=== PATIENT | female | born 1935 | race Caucasian/White ===

== ENCOUNTER 2020-11-25 10:09 | Emergency (ER) | payer OTHER ==
[~2020-11-25] VITALS: Ht 154.9 cm; Wt 60.6 kg
[2020-11-25] MEDS ORDERED: IV NORMAL SALINE 1,000ML 1,000 ML IV ONE (10:30)
[2020-11-25] MEDS ORDERED: MAGNESIUM CITRATE 296 ML SOLUTION. PO ONE (10:30)
--- NOTE | 2020-11-25 10:34 | PHYS DOC ---
General Adult EDM: Chief Complaint: CONSTIPATION HPI: HPI: 85-year-old female presents with constipation. The patient has not had a bowel movement in several days. She has tried MiraLAX, Dulcolax with no relief. She did have 1 very small hard bowel movement today. She has had lots of flatulence. Her abdomen is distended. She thinks is related to a muscle pull in her low back. She had this once in the past because of a pulled back muscle. It resolved at that time. She is having back pain again and now has constipation. She denies perineal numbness. Her abdomen is not painful. She denies fever or chills. Review of Systems: Review of Systems: Constitutional: Denies fever or chills Eyes: Denies change in visual acuity HENT: Denies nasal congestion or sore throat Respiratory: Denies cough or shortness of breath Cardiovascular: Denies chest pain or edema GI: Abdominal distention. Constipation. Denies abdominal pain, nausea, vomiting, bloody stools or diarrhea : Denies dysuria Musculoskeletal: Denies back pain or joint pain Integument: Denies rash Neurologic: Denies headache, focal weakness or sensory changes Endocrine: Denies polyuria or polydipsia Lymphatic: Denies swollen glands Psychiatric: Denies depression or anxiety Current Medications: Current Meds: Current Medications Medications (Trade) Dose Ordered Sig/Micha Start Time Stop Time Status Last Admin Dose Admin Magnesium Citrate (Citroma) 296 ml 1X ONCE 11/25/20 10:30 11/25/20 10:31 UNV Sodium Chloride 1,000 ml @ 1,000 mls/hr 1X ONCE 11/25/20 10:30 11/25/20 11:29 UNV Allergies: Allergies: Allergies Coded Allergies Type Severity Reaction Last Updated Verified No Known Drug Allergies 11/25/20 No Physical Exam: PE: Constitutional: Well developed, well nourished, no acute distress, non-toxic appearance. [] HENT: Normocephalic, atraumatic, bilateral external ears normal, oropharynx moist, no oral exudates, nose normal. [] Eyes: PERRLA, EOMI, conjunctiva normal, no discharge. [] Neck: Normal range of motion, no tenderness, supple, no stridor. [] Cardiovascular:Heart rate regular rhythm, no murmur [] Lungs & Thorax: Bilateral breath sounds clear to auscultation [] Abdomen: Bowel sounds normal, distended, soft, no tenderness, no masses, no pulsatile masses. [] Skin: Warm, dry, no erythema, no rash. [] Back: No tenderness, no CVA tenderness. [] Extremities: No tenderness, no cyanosis, no clubbing, ROM intact, no edema. [] Neurologic: Alert and oriented X 3, normal motor function, normal sensory function, no focal deficits noted. [] Psychologic: Affect normal, judgement normal, mood normal. [] EKG: EKG: [] Radiology/Procedures: Radiology/Procedures: [] Impressions: EXAM: Abdomen, single view. HISTORY: Constipation. COMPARISON: None. FINDINGS: Frontal views of the abdomen are obtained. There is a small to moderate amount of colonic stool. There is no evidence of bowel obstruction. There is lumbar scoliosis and degenerative change throughout the lumbar spine. IMPRESSION: Small moderate amount of colonic stool. No evidence of bowel obstruction. Electronically signed by: Kaylene Murillo MD (11/25/2020 10:49 AM) [id number] DICTATED AND SIGNED BY: KAYLENE MURILLO MD DATE: 11/25/20 1048 CC: ANGELO RODRÍGUEZ DO ~MTH0 0 Heart Score: C/O Chest Pain: N/A Risk Factors: Risk Factors: DM, Current or recent (<one month) smoker, HTN, HLP, family history of CAD, obesity. Risk Scores: Score 0 - 3: 2.5% MACE over next 6 weeks - Discharge Home Score 4 - 6: 20.3% MACE over next 6 weeks - Admit for Clinical Observation Score 7 - 10: 72.7% MACE over next 6 weeks - Early Invasive Strategies Course & Med Decision Making: Course & Med Decision Making Pertinent Labs and Imaging studies reviewed. (See chart for details) The patient's KUB is negative for obstruction. There is some stool. Patient has been given a liter of normal saline and a bottle magnesium citrate. Her labs are unremarkable. She has had stool output. She is stable for discharge at this time. [] Dragon Disclaimer: Dragon Disclaimer: This electronic medical record was generated, in whole or in part, using a voice recognition dictation system. Departure Departure: Impression: Primary Impression: Constipation Qualified Codes: K59.00 - Constipation, unspecified Disposition: 01 HOME / SELF CARE / HOMELESS Condition: IMPROVED Patient Instructions: Constipation, Adult, [id number] ANGELO RODRÍGUEZ DO Nov 25, 2020 10:34
--- NOTE | 2020-11-25 10:51 | RAD ---
EXAM: Abdomen, single view. HISTORY: Constipation. COMPARISON: None. FINDINGS: Frontal views of the abdomen are obtained. There is a small to moderate amount of colonic s tool. There is no evidence of bowel obstruction. There is lumbar scoliosis and degenerative change th roughout the lumbar spine. IMPRESSION: Small moderate amount of colonic stool. No evidence of bowel obstruction. Electronically signed by: Kaylene Murillo MD (11/25/2020 10:49 AM) [id number]
[2020-11-25 10:58] LABS: BILIRUBIN,URINE NEG (NEG); CLARITY,URINE CLEAR; COLOR,URINE YELLOW; GLUCOSE,URINE NEG (NEG); NITRITE,URINE NEG (NEG); UROBILINOGEN,URINE 0.2 mg/dL (0.2 mg/dL)
[2020-11-25 10:59] LABS: BACTERIA,URINE 0 /HPF (0-FEW); RBC,URINE 0 /HPF (0-2); WBC,URINE 0 /HPF (0-4)
[2020-11-25 11:17] LABS: BASO % 0 % (0-3); EOS % 0 % (0-3); HEMATOCRIT 40.4 % (36.0-47.0); HEMOGLOBIN 13.6 g/dL (12.0-15.5); LYMPH # 0.7 x10^3/uL (1.0-4.8); LYMPH % 9 % (24-48); MEAN CORPUSCULAR HEMOGLOBIN 32 pg (25-35); MEAN CORPUSCULAR HGB CONC 34 g/dL (31-37); MEAN CORPUSCULAR VOLUME 94 fL (79-100); MONO # 0.5 x10^3/uL (0.0-1.1); MONO % 6 % (0-9); NEUT # 6.1 x10^3uL (1.8-7.7); NEUT % 84 % (31-73); PLATELET COUNT 316 x10^3/uL (140-400); RED BLOOD COUNT 4.29 x10^6/uL (3.50-5.40); RED CELL DISTRIBUTION WIDTH 13.5 % (11.5-14.5); WHITE BLOOD COUNT 7.3 x10^3/uL (4.0-11.0)
[2020-11-25 11:25] LABS: CALCIUM 8.9 mg/dL (8.5-10.1); CREATININE 0.7 mg/dL (0.6-1.0); GFR 79.7; POTASSIUM 4.3 mmol/L (3.5-5.1)
[2020-11-25 11:30] LABS: ALBUMIN 3.7 g/dL (3.4-5.0); ALBUMIN/GLOBULIN RATIO 0.9 (1.0-1.7); TOTAL BILIRUBIN 0.5 mg/dL (0.2-1.0); TOTAL PROTEIN 7.6 g/dL (6.4-8.2)
[2020-11-25] MEDS ORDERED: ONDANSETRON PF 4 MG/2 ML VIAL. IVP ONE (12:00)
[2020-11-25 13:15] VITALS: BP 141/86
== END 2020-11-25 13:20 | disposition home or self-care (01) ==
LOC: ER 10:09
DX: K59.00 Constipation, unspecified (principal)
CPT/HCPCS: 36415; 74018; 80053; 81001; 85025; 96361; 96374; 99284; J2405; J7030

== ENCOUNTER → 2020-11-28 | Outpatient (CLI) | payer OTHER ==
[2020-11-25 13:15] VITALS: BP 141/86
[~2020-11-28] MED LIST: IOHEXOL 300 MG/ML 75 ML VIAL. IV ONE
--- NOTE | 2020-11-28 13:59 | RAD ---
EXAM: Abdomen CT with intravenous contrast. HISTORY: Distention. TECHNIQUE: Computed tomographic images of the abdomen and pelvis were obtained following the administ ration of intravenous contrast. Multiplanar reformatting was performed. *One or more of the following individualized dose reduction techniques were utilized for this examina tion: 1. Automated exposure control. 2. Adjustment of the mA and/or kV according to patient size. 3. Use of iterative reconstruction technique. COMPARISON: None. FINDINGS: Evaluation of the lower thorax demonstrates bilateral basilar atelectasis and pleural paren chymal scarring. There is cardiomegaly. There is calcification of the aortic valve and mitral valve a nnulus. There is no suspicious hepatic lesion. The gallbladder, pancreas, spleen and left adrenal gla nd are unremarkable. There is a 1.5 cm right adrenal adenoma. There is mild left greater than right h ydronephrosis. No solid or cystic renal lesion is seen. The distal ureters are excluded from the fiel d-of-view. There is a large amount of stool within the colon. There is no evidence of bowel obstructi on. There is distal colonic diverticulosis. There are calcified uterine fibroids. There is calcified atherosclerotic plaque involving the aorta and main aortic branch vessels. There is no lymphadenopath y. There are degenerative changes throughout the spine. There is scoliosis and multilevel listhesis. There is a severe chronic compression fracture of L1. There is 2 mm retropulsion of the cortex at thi s level contributing to mild central canal stenosis. There is also a moderate to severe compression f racture of L2 with approximately 3 mm retropulsion of the cortex resulting in mild central canal sten osis. This is acute or subacute. There is severe foraminal stenosis bilaterally at L4-L5 and on the r ight at L5-S1. IMPRESSION: 1. Large amount of colonic stool consistent with constipation. There is no evidence of bowel obstruct ion. 2. Mild left greater than right hydronephrosis. The distal ureters are excluded from the [id number] w. 3. Acute or subacute moderate to severe L2 compression fracture. There is may be superimposed on a ch ronic fracture. There is also a chronic fracture at L1. 4. Right adrenal adenoma. 5. Colonic diverticulosis. Electronically signed by: Kaylene Murillo MD (11/28/2020 1:57 PM) [id number]
== END ==
LOC: CT 13:08
PROVIDERS: ATTEND Family Medicine
DX: K57.30 Diverticulosis of large intestine without perforation or abscess without bleeding (principal); K59.00 Constipation, unspecified; R14.0 Abdominal distension (gaseous); N13.39 Other hydronephrosis
CPT/HCPCS: 74160; Q9967